=== PATIENT | male | born 1940 | race Caucasian/White ===

== ENCOUNTER 2016-03-08 08:17 | Outpatient (CLI) | payer MEDICARE, OTHER | END 2016-03-08 08:18 | disposition home or self-care (01) | LOC: NAVSJIPCSP 08:17 | PROVIDERS: ATTEND Family Medicine | DX: I10 Essential (primary) hypertension (principal) ==

== ENCOUNTER 2016-03-08 08:26 | Outpatient (CLI) | payer OTHER ==
[2016-03-08 12:41] LABS: #Basophils 0.1 thou/uL (0.0-0.2); #Eosinphils 0.3 thou/uL (0.0-0.7); #Lymphocytes 1.7 thou/uL (1.20-3.40); #Monocytes 0.7 thou/uL (0.11-0.59); #Neutrophils 3.9 thou/uL (1.40-6.50); %Basophils 1.2 % (0.0-1.0); %Eosinophils 5.1 % (0.0-10.0); %Lymphocytes 25.6 % (21.0-51.0); %Monocytes 9.9 % (0.0-10.0); Hematocrit 48.4 % (42.0-52.0); Mean Platelet Volume 9.3 fL (7.4-10.4); Red Blood Cell (RBC) Count 5.06 mill/uL (4.70-6.10); White Blood Cell (WBC) Count 6.6 thou/uL (4.8-10.8)
[2016-03-08 12:52] LABS: ALT (SGPT) 18 U/L (0-55); AST (SGOT) 20 U/L (5-34); Alkaline Phosphatase 50 U/L (40-150); Anion Gap 11 mmol/L (10-20); BUN (Urea Nitrogen) 18 mg/dL (8.4-25.7); Bilirubin, Direct 0.2 mg/dL (0.1-0.3); Bilirubin, Total 0.6 mg/dL (0.2-1.2); Calc. Creatinine Clearance 0 mL/min (70-130); Calcium 9.5 mg/dL (7.8-10.44); Carbon Dioxide 27 mmol/L (23-31); Chloride 106 mmol/L (98-107); Estimated GFR-MDRD 50; LDL Cholesterol, Calculated 74 mg/dL; Protein, Total 6.5 g/dL (5.8-8.1)
[2016-03-08 13:23] LABS: Hemoglobin A1c 5.6 % (4.0-6.0)
== END 2016-03-08 08:27 ==
LOC: NAVSJIPCSP 08:26
PROVIDERS: ATTEND Family Medicine
DX: I10 Essential (primary) hypertension (principal)
CPT/HCPCS: 36415; 80048; 80061; 80076; 83036; 84443; 85025

== ENCOUNTER 2016-07-08 09:10 | Outpatient (CLI) | payer MEDICARE ==
[2016-07-08 12:49] LABS: #Basophils 0.1 thou/uL (0.0-0.2); #Eosinphils 0.3 thou/uL (0.0-0.7); #Lymphocytes 1.8 thou/uL (1.20-3.40); #Monocytes 0.8 thou/uL (0.11-0.59); #Neutrophils 4.3 thou/uL (1.40-6.50); %Basophils 0.9 % (0.0-1.0); %Eosinophils 3.5 % (0.0-10.0); %Lymphocytes 24.4 % (21.0-51.0); %Monocytes 10.8 % (0.0-10.0); %Neutrophils 60.3 % (42.0-75.0); Hemoglobin 15.7 g/dL (14.0-18.0); Mean Corpuscular HGB CONC 32.6 g/dL (32.0-36.0); Mean Corpuscular Hemoglobin 30.2 pg (27.0-31.0); Mean Corpuscular Volume 92.6 fl (80.0-94.0); Mean Platelet Volume 9.1 fL (7.4-10.4); Platelet Count 186 thou/uL (130-400); RBC Distribution Width 11.2 % (11.5-14.5); White Blood Cell (WBC) Count 7.2 thou/uL (4.8-10.8)
[2016-07-08 12:52] LABS: ALT (SGPT) 17 U/L (8-55); AST (SGOT) 18 U/L (5-34); Albumin 4.2 g/dL (3.4-4.8); Alkaline Phosphatase 48 U/L (40-150); Anion Gap 16 mmol/L (10-20); BUN (Urea Nitrogen) 20 mg/dL (8.4-25.7); Bilirubin, Direct 0.2 mg/dL (0.1-0.3); Bilirubin, Total 0.6 mg/dL (0.2-1.2); Calc. Creatinine Clearance 0 mL/min (70-130); Calcium 9.6 mg/dL (7.8-10.44); Carbon Dioxide 25 mmol/L (23-31); Cardiac Risk 3.4 (Less than 4.5); Chloride 104 mmol/L (98-107); Cholesterol 151 mg/dl (< 200 Desired); Estimated GFR-MDRD 43; Glucose 102 mg/dL (83-110); HDL Cholesterol 44 mg/dL (>60 Neg Risk); LDL Cholesterol, Calculated 86 mg/dL; Potassium 5.1 mmol/L (3.5-5.1); Protein, Total 6.7 g/dL (5.8-8.1); Sodium 140 mmol/L (136-145); Triglycerides 107 mg/dL (Less than 150)
[2016-07-08 13:35] LABS: Hemoglobin A1c 5.6 % (4.0-6.0)
[2016-07-08 14:30] LABS: PSA-Asymptomatic (SCREENING) 0.79 ng/mL (0-4.0); Thyroid Stimulating Hormone 1.5725 uIU/mL (0.35-4.94)
== END 2016-07-08 09:11 | disposition home or self-care (01) ==
LOC: NAVSJIPCSP 09:10
PROVIDERS: ATTEND Family Medicine
DX: Z12.5 Encounter for screening for malignant neoplasm of prostate (principal); I10 Essential (primary) hypertension; R73.01 Impaired fasting glucose; Z79.899 Other long term (current) drug therapy
CPT/HCPCS: 80048; 80061; 80076; 83036; 84443; 85025; G0103

== ENCOUNTER 2016-07-15 10:12 | Outpatient (CLI) | payer MEDICARE ==
--- NOTE | 2016-07-15 12:24 | RAD ---
CHEST 2 VIEWS: Date: 07/15/16 HISTORY: Asbestos exposure. Screening. COMPARISON: None. FINDINGS: Lungs are clear. No pneumothorax or effusion. No calcified pleural plaques are appreciated. Cardiac silhouette and mediastinal contour within normal limits. There is mild hilar prominence bilaterally. IMPRESSION: 1. Mild prominence of the hilum bilaterally can be seen with adenopathy versus pulmonary arterial d ilatation. Follow-up recommended. 2. No evidence of calcified pleural plaques. POS: [facility]
== END 2016-07-15 10:13 | disposition home or self-care (01) ==
LOC: NAV RAD 10:12
PROVIDERS: ATTEND Family Medicine
DX: Z77.090 Contact with and (suspected) exposure to asbestos (principal); I28.8 Other diseases of pulmonary vessels
CPT/HCPCS: 71020

== ENCOUNTER 2017-08-03 13:08 | Outpatient (CLI) | payer MEDICARE ==
--- NOTE | 2017-08-03 14:13 | RAD ---
PA AND LATERAL CHEST X-RAY: 08/03/2017 HISTORY: Asbestos exposure. COMPARISON: 07/15/2016 FINDINGS: The cardiac silhouette and pulmonary vasculature are within normal limits. Stable calcified granulom a is again present at the right mid lung zone. Linear densities overly the lower lobes on the latera l projection, which may be related to either minimal atelectasis and/or mild scarring. The lungs are otherwise clear. Vascular calcification is seen in the thoracic aorta. There has been no significa nt interval change from the prior exam. IMPRESSION: No acute cardiopulmonary process. POS: [facility]
== END 2017-08-03 13:09 | disposition home or self-care (01) ==
LOC: NAV RAD 13:08
PROVIDERS: ATTEND Family Medicine
DX: Z77.090 Contact with and (suspected) exposure to asbestos (principal)
CPT/HCPCS: 71046

== ENCOUNTER 2018-08-07 10:58 | Outpatient (CLI) | payer MEDICARE ==
--- NOTE | 2018-08-07 13:40 | RAD ---
RADIOGRAPH CHEST 2 VIEWS: HISTORY: 78-year-old male with asbestos exposure. FINDINGS: There is no air space density, pulmonary edema, pleural effusion, pneumothorax, or cardiomegaly. No calcified pleural plaque is visualized. IMPRESSION: No evidence of active disease. jn [] POS: [facility]
== END 2018-08-07 10:59 | disposition home or self-care (01) ==
LOC: NAV RAD 10:58
PROVIDERS: ATTEND Family Medicine
DX: Z77.090 Contact with and (suspected) exposure to asbestos (principal)
CPT/HCPCS: 71046

== ENCOUNTER 2019-08-13 11:48 | Outpatient (CLI) | payer MEDICARE ==
--- NOTE | 2019-08-13 14:34 | RAD ---
CHEST 2 VIEWS: Date: 08/13/2019 HISTORY: Asbestos exposure. COMPARISON: 08/07/2018. FINDINGS: Mild bilateral hyperinflation. Evidence for right-sided old granulomatous disease. No confluent pneum onia, overt edema, or pleural effusion. IMPRESSION: Stable chronic changes. No acute intrathoracic disease. Old granulomatous disease. Atherosclerosis of aorta. POS: [facility]
== END 2019-08-13 11:49 | disposition home or self-care (01) ==
LOC: NAV RAD 11:48
PROVIDERS: ATTEND Family Medicine
DX: Z77.090 Contact with and (suspected) exposure to asbestos (principal); I70.0 Atherosclerosis of aorta
CPT/HCPCS: 71046

== ENCOUNTER 2019-08-29 12:46 | Outpatient (CLI) | payer MEDICARE ==
[2019-08-29 12:59] LABS: #Basophils 0.1 thou/uL (0.0-0.2); #Eosinphils 0.4 thou/uL (0.0-0.7); #Lymphocytes 2.3 thou/uL (1.20-3.40); #Neutrophils 4.6 thou/uL (1.40-6.50); %Basophils 1.4 % (0.0-1.0); %Eosinophils 5.2 % (0.0-10.0); %Lymphocytes 26.9 % (21.0-51.0); %Neutrophils 54.6 % (42.0-75.0); Hemoglobin 14.6 g/dL (14.0-18.0); Mean Corpuscular HGB CONC 32.7 g/dL (32.0-36.0); Mean Corpuscular Hemoglobin 31.1 pg (27.0-31.0); Mean Corpuscular Volume 95.1 fL (78.0-98.0); Mean Platelet Volume 10.2 fL (7.4-10.4); Platelet Count 185 thou/uL (130-400); RBC Distribution Width 11.4 % (11.5-14.5); Red Blood Cell (RBC) Count 4.71 mill/uL (4.70-6.10); White Blood Cell (WBC) Count 8.4 thou/uL (4.8-10.8)
[2019-08-29 13:08] LABS: Anion Gap 14 mmol/L (10-20); BUN (Urea Nitrogen) 18 mg/dL (8.4-25.7); Calc. Creatinine Clearance 0 mL/min (70-130); Calcium 9.4 mg/dL (7.8-10.44); Carbon Dioxide 23 mmol/L (23-31); Chloride 104 mmol/L (98-107); Estimated GFR-MDRD 53; Glucose 140 mg/dL (83-110); Potassium 4.8 mmol/L (3.5-5.1); Sodium 136 mmol/L (136-145)
[2019-08-29 13:11] LABS: Bilirubin Negative (Negative); Blood, Urine Negative (Negative); Clarity Clear (Clear); Glucose, Urine (Dipstick) Negative (Negative); Ketone, Urine Negative (Negative); Leukocyte Negative (Negative); Nitrite Negative (Negative); Protein, Urine (Dipstick) Negative (Neg-Trace); Specific Gravity, Urine 1.015 (1.005-1.030); Urobilinogen 0.2 mg/dL (Less than 2)
== END 2019-08-29 12:47 | disposition home or self-care (01) ==
LOC: NAV SJFMSP 12:46
PROVIDERS: ATTEND Family Medicine
DX: R53.83 Other fatigue (principal); R35.0 Frequency of micturition; Z79.899 Other long term (current) drug therapy
CPT/HCPCS: 80048; 81003; 85025; 87086

== ENCOUNTER 2021-04-15 11:27 | Outpatient (CLI) | payer MEDICARE | END 2021-04-15 11:28 | disposition home or self-care (01) | LOC: NAV RAD 11:27 | PROVIDERS: ATTEND Family Medicine | DX: Z77.090 Contact with and (suspected) exposure to asbestos (principal) | CPT/HCPCS: 71046 ==

== ENCOUNTER 2021-06-10 09:06 | Outpatient (CLI) | payer MEDICARE | END 2021-06-10 09:07 | disposition home or self-care (01) | LOC: NAV ERS 09:06 | PROVIDERS: ATTEND Nurse Practitioner Family | DX: M25.551 Pain in right hip (principal); M16.11 Unilateral primary osteoarthritis, right hip ==

== ENCOUNTER 2022-06-22 08:26 | Outpatient (CLI) | payer MEDICARE | END 2022-06-22 08:27 | disposition home or self-care (01) | LOC: NAV RAD 08:26 | PROVIDERS: ATTEND Family Medicine | DX: Z01.810 Encounter for preprocedural cardiovascular examination (principal) | CPT/HCPCS: 71046 ==